=== PATIENT | female | born 1950 | race Native Hawaiian/Other Pacific Islander ===

== ENCOUNTER 2016-12-10 09:39 | Emergency (ER) | payer OTHER ==
[~2016-12-10] VITALS: Ht 162.6 cm; Wt 88.9 kg
[~2016-12-10 09:39] MED LIST: BISA10SU8 RE; BREO ELLIPTA 101 INH IN; CASA100C53 PO; CLON1TAB18 PO; DIVA500T2 PO; DOCU100C10 PO; FERR325T5 PO; FLUT0.05 NAS; FURO40TA93 PO; HYDR5TAB9 PO; LEVO0.0218 PO; LOPE2CAP17 PO; MOTRIN IB200 MG PO; PROZAC10 MG PO; SEROQUEL25 MG PO; SINGULAIR10 MG PO; TEMA30CA18 PO; TRAM50TA PO; VENTOLIN HFA 90 MCG INH
[2016-12-10 09:49] VITALS: TEMP 98
[2016-12-10 12:45] VITALS: BP 128/66
== END 2016-12-10 13:00 | disposition other institution (70) ==
LOC: ED 09:39
PROC: 0HQ1XZZ Repair Face Skin, External Approach (ICD-10-PCS; principal; 2016-12-10)
DX: S01.81XA Laceration without foreign body of other part of head, initial encounter (principal); W03.XXXA Other fall on same level due to collision with another person, initial encounter; Y92.238 Other place in hospital as the place of occurrence of the external cause
CPT/HCPCS: 99283

== ENCOUNTER 2020-04-16 19:09 | Emergency (ER) | payer OTHER ==
[~2020-04-16] VITALS: Ht 162.6 cm; Wt 100.7 kg
[2020-04-16 20:00] LABS: PLATELET COUNT 298 K/uL (152-353)
[2020-04-16 20:06] LABS: POTASSIUM 4.2 mmol/L (3.6-5.2)
[2020-04-16 20:50] VITALS: BP 131/72; TEMP 98.5
[2020-04-16] MEDS ORDERED: VITAMIN C 500 M1 TAB PO (23:11)
[2020-04-16] MEDS ORDERED: BENZ1TAB43 PO (23:13)
[2020-04-16] MEDS ORDERED: WELLBUTRIN100 M1 PO (23:15)
[2020-04-17] MEDS ORDERED: GABA300C2 PO (00:11)
[2020-04-17] MEDS ORDERED: CLOZAPINE100 MG PO (00:12)
[2020-04-17] MEDS ORDERED: KLOR-CON M2020 MEQ PO (00:17)
[2020-04-17] MEDS ORDERED: RISP50IN IM (00:19)
[2020-04-17] MEDS ORDERED: PHENYTOIN EX100 MG PO (00:26)
[2020-04-17] MEDS ORDERED: MIRALAX3350 N1 PO (00:29)
[2020-04-17] MEDS ORDERED: RISP1TAB PO (00:30)
[2020-04-17] MEDS ORDERED: TRAZODONE HYDR150 MG PO (00:31)
[2020-04-17] MEDS ORDERED: MOBIC15 MG PO (00:32)
[2020-04-17] MEDS ORDERED: LUBI24CA PO (00:33)
[2020-04-17] MEDS ORDERED: TESSALON PER100 MG PO (00:34)
[2020-04-17] MEDS ORDERED: MELATONIN3 M1 PO (00:36)
== END 2020-04-16 20:50 | disposition other institution (70) ==
LOC: ED 19:09
PROVIDERS: Family Medicine
DX: F20.89 Other schizophrenia (principal); F31.89 Other bipolar disorder; Z11.59 Encounter for screening for other viral diseases; Z04.6 Encounter for general psychiatric examination, requested by authority
CPT/HCPCS: 80053; 81000; 85027; 87635; 93005; 99283; U00003; U0002